=== PATIENT | male | born 1975 | race Caucasian/White ===

== ENCOUNTER 2017-06-08 13:06 | Inpatient (IN) | payer SELFPAY ==
[~2017-06-08] VITALS: Ht 175.3 cm; Wt 60.5 kg
[2017-06-08] VITALS (9 sets, daily range): BP systolic 121–160; BP diastolic 64–88; PULSE 81–111; RESP 16–22; TEMP 98.3–98.4; O2SAT 96–98
[2017-06-08] MEDS ORDERED: SODIUM CHLOR 0.9% 1000 ML INJ 1,000 ML IV ONE (13:20)
--- NOTE | 2017-06-08 13:25 | PD ---
HPI Chief Complaint: Seizure Time Seen by Provider: 13:22 Travel History International Travel<30 days: No Contact w/Intl Traveler<30days: No Traveled to known affect area: No History of Present Illness HPI 41-year-old male presents to the emergency department via EMS for evaluation after he had a seizure just prior to arrival. Patient arrived from [place] today. He is on vacation. Patient is Tunisian-speaking, but does understand significant amount Lithuanian. 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 The patient denies any history of seizures. Patient does state that he drinks approximately 12 pack of beer daily. He had 10 beers yesterday, but has not had any alcohol today. He denies any history of alcohol withdrawal seizures and states he does not feel like he is withdrawing. The patient denies any fevers or chills. No chest pain or shortness of breath. No abdominal pain. No nausea, vomiting, diarrhea. According to EMS, he did have incontinence of urine during seizure. He also has abrasions to his tongue from tongue biting. Patient also has abrasions to the nasal bridge and right forehead. He is unsure of his tetanus immunization is up-to-date, but does not believe it is. The patient denies any chronic medical problems and takes no prescribed medications. He denies any illicit drug use. Patient denies any complaints at this time and states he feels well. [facility] Social History Alcohol Use: Yes (12 pack daily) Tobacco Use: Yes Substance Use: No Allergies-Medications (Allergen,Severity, Reaction): Coded Allergies: No Known Allergies (Unverified , 06/08/17) Reported Meds & Prescriptions Reported Meds & Active Scripts Active No Active Prescriptions or Reported Medications Review of Systems Except as stated in HPI: all other systems reviewed are Neg Physical Exam Narrative GENERAL: Well-nourished, well-developed male patient, afebrile. SKIN: Focused skin assessment warm/dry. Patient abrasion to the nose and right forehead. He also has abrasions the tongue from tongue biting. HEAD: Normocephalic. EYES: No scleral icterus. No injection or drainage. PERRLA. ENT: Mucosa pink and moist. No erythema or exudates. No uvular edema. No uvular , palatal, or tonsillar deviation. Airway patent. Nasal turbinates appear normal without nasal blood, purulent drainage or septal hematoma. Bilateral tympanic membranes are clear without erythema or perforation. NECK: Supple, trachea midline. No JVD or lymphadenopathy. CARDIOVASCULAR: Regular rate and rhythm without murmurs, gallops, or rubs. Bilateral radial and pedal pulses are 2+. RESPIRATORY: Breath sounds equal bilaterally. No accessory muscle use. Lungs sounds are clear to auscultation. GASTROINTESTINAL: Abdomen soft, non-tender, nondistended. MUSCULOSKELETAL: No cyanosis, or edema. BACK: Nontender without obvious deformity. No CVA tenderness. Data Data Last Documented VS Vital Signs Date Time Temp Pulse Resp B/P Pulse Ox O2 Delivery O2 Flow Rate FiO2 06/08/17 13:23 98.4 104 18 155/88 96 Room Air Orders Complete Blood Count With Diff (06/08/17 13:20) Alcohol (Ethanol) (06/08/17 13:20) Drug Screen, Random Urine (06/08/17 13:20) Electrocardiogram (06/08/17 ) Ct Brain W/O Iv Contrast(Rout) (06/08/17 ) Blood Glucose (06/08/17 13:20) Ecg Monitoring (06/08/17 13:20) Iv Access Insert/Monitor (06/08/17 13:20) Oximetry (06/08/17 13:20) Comprehensive Metabolic Panel (06/08/17 13:20) Sodium Chlor 0.9% 1000 Ml Inj (Ns 1000 M (06/08/17 13:20) Sodium Chloride 0.9% Flush (Ns Flush) (06/08/17 13:30) Urinalysis - C+S If Indicated (06/08/17 13:20) Tetanus/Diphtheria Tox Adult (Tetanus/Di (06/08/17 13:30) Magnesium (Mg) (06/08/17 13:30) Chlordiazepoxide (Librium) (06/08/17 14:00) Urine Culture (06/08/17 13:30) Ketorolac Inj (Toradol Inj) (06/08/17 15:00) Labs Laboratory Tests Test 06/08/17 13:30 White Blood Count 7.4 TH/MM3 Red Blood Count 3.81 MIL/MM3 Hemoglobin 12.8 GM/DL Hematocrit 38.5 % Mean Corpuscular Volume 101.3 FL Mean Corpuscular Hemoglobin 33.5 PG Mean Corpuscular Hemoglobin 33.1 % Concent Red Cell Distribution Width 12.2 % Platelet Count 137 TH/MM3 Mean Platelet Volume 8.6 FL Neutrophils (%) (Auto) 73.7 % Lymphocytes (%) (Auto) 13.6 % Monocytes (%) (Auto) 11.4 % Eosinophils (%) (Auto) 0.3 % Basophils (%) (Auto) 1.0 % Neutrophils # (Auto) 5.5 TH/MM3 Lymphocytes # (Auto) 1.0 TH/MM3 Monocytes # (Auto) 0.8 TH/MM3 Eosinophils # (Auto) 0.0 TH/MM3 Basophils # (Auto) 0.1 TH/MM3 CBC Comment DIFF FINAL Differential Comment Urine Color YELLOW Urine Turbidity CLEAR Urine pH 6.5 Urine Specific [place] 1.018 Urine Protein 300 mg/dL Urine Glucose (UA) NEG mg/dL Urine Ketones 10 mg/dL Urine Occult Blood TRACE Urine Nitrite NEG Urine Bilirubin NEG Urine Urobilinogen LESS THAN 2.0 MG/DL Urine Leukocyte Esterase SMALL Urine RBC 2 /hpf Urine WBC 45 /hpf Urine Squamous Epithelial <1 /hpf Cells Urine Transitional Epithelial <1 /hpf Cells Urine Bacteria RARE /hpf Urine Hyaline Casts 5 /lpf Urine Granular Casts 1 /lpf Urine Mucus FEW /lpf Microscopic Urinalysis Comment CULTURE INDICATED Sodium Level 135 MEQ/L Potassium Level 3.5 MEQ/L Chloride Level 99 MEQ/L Carbon Dioxide Level 19.6 MEQ/L Anion Gap 16 MEQ/L Blood Urea Nitrogen 3 MG/DL Creatinine 0.60 MG/DL Estimat Glomerular Filtration 150 ML/MIN Rate Random Glucose 126 MG/DL Calcium Level 8.9 MG/DL Magnesium Level 2.0 MG/DL Total Bilirubin 1.0 MG/DL Aspartate Amino Transf 245 U/L (AST/SGOT) Alanine Aminotransferase 98 U/L (ALT/SGPT) Alkaline Phosphatase 99 U/L Total Protein 7.9 GM/DL Albumin 3.9 GM/DL Urine Opiates Screen NEG Urine Barbiturates Screen NEG Urine Amphetamines Screen NEG Urine Benzodiazepines Screen NEG Urine Cocaine Screen NEG Urine Cannabinoids Screen NEG Ethyl Alcohol Level 18 MG/DL MDM Medical Decision Making Medical Screen Exam Complete: Yes Emergency Medical Condition: Yes Medical Record Reviewed: Yes Interpretation(s) Last Impressions Head CT 06/08/17 0000 Signed Impressions: Service Date/Time: Thursday, June 08, 2017 13:31 - CONCLUSION: Unremarkable study. Gordon Arias MD Differential Diagnosis New-onset seizures versus alcohol withdrawal seizure versus electrolyte abnormality versus dehydration versus cardiac arrhythmia Narrative Course 41-year-old male presents to the emergency department via EMS for evaluation after a seizure that occurred just prior to arrival. He denies any history of seizures. Patient does drink 12 pack of beer daily and has not had any alcohol today. Patient denies any complaints at this time. Tetanus immunization is updated. EKG, CBC, CMP, alcohol level, urine drug screen, magnesium, UA are ordered and pending. CT of the brain is ordered and pending. Patient is given normal saline 1 L IV bolus. Patient is given Librium 50 mg by mouth. EKG shows sinus rhythm, heart rate 99, no acute ST changes. CBC shows hemoglobin 12.8, hematocrit 38.5. CMP shows carbon dioxide 19.6, anion gap is 16, glucose 126, AST 245, ALT 98. Magnesium is 2.0. UA shows small leukocyte esterase, 45 WBC. UDS is negative. Alcohol is 18. CT of the brain is unremarkable. Patient's at bedside states that while in the drive from [place], the patient became very shaky and she did become concerned. Once arriving the hotel he had a seizure. She believes that he is having alcohol withdrawal seizure as well. His daughter at bedside apparently witnessed a seizure and is very upset. The patient is still very shaky at this time. [facility] is paged for admission for alcohol withdrawal seizure. Dr. Christensen accepted the admission. Per her request, the patient will be slotted for ICU. Diagnosis Primary Impression: Alcohol withdrawal seizure Qualified Code: F10.230 - Alcohol withdrawal seizure, uncomplicated Admitting Information Admitting Physician Requests: Admit Scripts No Active Prescriptions or Reported Meds Gale Garcia Jun 08, 2017 13:25
[2017-06-08] MEDS ORDERED: TETANUS/DIPHTHERIA TOXOID ADULT 0.5 ML VIAL IM ONE (13:30)
[2017-06-08] MEDS ORDERED: SODIUM CHLORIDE 0.9% FLUSH 10 ML FLUSH IVF PRN (13:30)
--- NOTE | 2017-06-08 13:52 | RADRPT ---
EXAM DATE/TIME: 06/08/2017 13:31 [place] COMPARISON: No previous studies available for comparison. INDICATIONS : Possible seizure today. RADIATION DOSE: 56.35 CTDIvol (mGy) MEDICAL HISTORY : None SURGICAL HISTORY : None. ENCOUNTER: Initial ACUITY: 1 day PAIN SCALE: 0/10 LOCATION: Bilateral head TECHNIQUE: Multiple contiguous axial images were obtained of the head. Using automated exposure control and adj ustment of the mA and/or kV according to patient size, radiation dose was kept as low as reasonably a chievable to obtain optimal diagnostic quality images. DICOM format image data is available electro nically for review and comparison. FINDINGS: There is no evidence for intracranial hemorrhage, mass effect, mass lesions, edema, or extra-axial fl uid collections. The visualized bony structures appear intact. The ventricles are normal size for t he patient's age. There are no signs of acute infarction for technique. CONCLUSION: Unremarkable study. Gordon Arias MD on June 08, 2017 at 13:47 Board Certified Radiologist. This report was verified electronically.
[2017-06-08 13:53] LABS: AUTOMATED NEUTROPHIL # 5.5 TH/MM3 (1.8-7.7); BASOPHIL # 0.1 TH/MM3 (0-0.2); EOSINOPHIL % 0.3 % (0.0-4.0); HEMATOCRIT 38.5 % (39.0-51.0); HEMO FLAGS DIFF FINAL; LYMPH % 13.6 % (9.0-44.0); MEAN CELL VOLUME 101.3 FL (80.0-100.0); MEAN CORPUSCULAR HEMOGLOBIN 33.5 PG (27.0-34.0); MEAN CORPUSCULAR HGB CONC 33.1 % (32.0-36.0); MONO % 11.4 % (0.0-8.0); NEUT % 73.7 % (16.0-70.0); PLATELET COUNT 137 TH/MM3 (150-450); RED BLOOD COUNT 3.81 MIL/MM3 (4.50-5.90); RED CELL DISTRIBUTION WIDTH 12.2 % (11.6-17.2); WHITE BLOOD COUNT 7.4 TH/MM3 (4.0-11.0)
[2017-06-08] MEDS ORDERED: chlordiazePOXIDE 25 MG CAP PO ONE (14:00)
[2017-06-08 14:05] LABS: AMPHETAMINE, URINE NEG (NEG); BACTERIA, URINE RARE /hpf; BARBITURATES, URINE NEG (NEG); BLOOD, URINE TRACE (NEG); COCAINE, URINE NEG (NEG); COMMENT (UR) CULTURE INDICATED; CULTURE IF INDICATED CULTURE INDICATED; GLUCOSE,URINE NEG (NEG); GRANULAR CAST, URINE 1 /lpf; HYALINE CAST, URINE 5 /lpf (RARE); KETONE, URINE 10 mg/dL (NEG); MUCUS URINE FEW /lpf (OCC); NITRITE,URINE NEG (NEG); PH, URINE 6.5 (5.0-8.5); SQUAMOUS EPITHELIAL CELL URINE <1 /hpf (0-5); TRANSITIONAL EPI CELLS, URINE <1 /hpf; URINE COLOR YELLOW (YELLW/STRAW)
[2017-06-08 14:06] LABS: ALT (GPT) 98 U/L (12-78); ANION GAP 16 MEQ/L (5-15); AST (GOT) 245 U/L (15-37); BICARBONATE 19.6 MEQ/L (21.0-32.0); BLOOD UREA NITROGEN 3 MG/DL (7-18); CHLORIDE 99 MEQ/L (98-107); GLOMERULAR FILTRATION RATE 150 ML/MIN (>89); POTASSIUM 3.5 MEQ/L (3.5-5.1); SODIUM (NA) 135 MEQ/L (136-145)
[2017-06-08 14:08] LABS: ALKALINE PHOSPHATASE 99 U/L (45-117)
[2017-06-08] MEDS ORDERED: KETOROLAC TROMETHAMINE 30 MG/ML (IVP) VIAL IV PUSH ONE (15:00)
[2017-06-08] MEDS ORDERED: LORazepam 1 MG TAB PO PRN (15:45)
[2017-06-08] MEDS ORDERED: LORazepam 2 MG/ML VIAL IV PUSH PRN ×4 (15:45)
[2017-06-08] MEDS ORDERED: LORazepam 2 MG TAB PO PRN (15:45)
[2017-06-08] MEDS ORDERED: SODIUM CHLORIDE 0.9% FLUSH 10 ML FLUSH IV FLUSH PRN (15:45)
[2017-06-08] MEDS ORDERED: FLUMAZENIL 0.5 MG/5 ML VIAL IV PUSH PRN (15:45)
--- NOTE | 2017-06-08 16:12 | HHI.HP ---
HPI Service [facility] Hospitalists Primary Care Physician Non-Staff Admission Diagnosis alcohol withdrawal seizure Diagnoses: Chief Complaint: Witnessed seizure Travel History International Travel<30 Days: No Contact w/Intl Traveler <30 Da: No Traveled to Known Affected Are: No History of Present Illness Written by Tracy Garcia PA-C acting as scribe for Dr. Mackay on 06/08/17 at 15:53. This is a 41 yo Malaysian speaking male with no significant PMHX who presented to [facility] ED via EMS for evaluation of seizure. Patient was driving to [place] for vacation from [place] with his . He became very shaky while driving. Upon his arrival to the hotel, he had a witnessed seizure. Per EMS, patient was incontinent of urine during his seizure and bite his tongue. The patient has no recollection of any of the events until he woke up on the ED. He endorses drinking 12 beers daily. He had 10 beers yesterday but none today. He denies any history of EtOH withdrawal and/or seizure in the past. He denies any recent illness. He denies any fever or chills. He denies any N/V or abdominal pain. He denies any chest pain or SOB. He denies any illicit drug use. In the ED, patient is awake and alert. Head CT was unremarkable. His white count is normal. UA is suggestive of UTI. Review of Systems Except as stated in HPI: all other systems reviewed are Neg Past Family Social History Past Medical History Patient denies any previous PMHX. Past Surgical History Reviewed with patient, no major surgeries Reported Medications Patient denies any home medications Allergies: Coded Allergies: No Known Allergies (Unverified , 06/08/17) Active Ordered Medications Current Medications Medications (Trade) Dose Ordered Sig/Myles Route Start Time Stop Time Status Last Admin (NS Flush) 2 ml UNSCH PRN IV FLUSH 06/08/17 15:45 (Romazicon Inj) 0.2 mg Q1M PRN IV PUSH 06/08/17 15:45 (Ativan) 1 mg Q4H PRN PO 06/08/17 15:45 (Ativan Inj) 1 mg Q4H PRN IV PUSH 06/08/17 15:45 (Ativan) 2 mg Q2H PRN PO 06/08/17 15:45 (Ativan Inj) 2 mg Q2H PRN IV PUSH 06/08/17 15:45 (Ativan Inj) 2 mg Q1H PRN IV PUSH 06/08/17 15:45 (Ativan Inj) 2 mg Q15M PRN IV PUSH 06/08/17 15:45 Family History Reviewed with patient who denies any significant FMHX Social History Patient denies any tobacco use. Patient admits to drinking 12 pack a beer daily. He occasionally drinks hard liquor as well. Patient denies any illicit drug use. Patient is and lives with his . They are in [place] on vacation and live in [place]. Physical Exam Vital Signs Vital Signs Date Time Temp Pulse Resp B/P Pulse Ox O2 Delivery O2 Flow Rate FiO2 06/08/17 13:23 98.4 104 18 155/88 96 Room Air 06/08/17 13:19 98.4 104 18 155/88 96 Room Air 06/08/17 13:19 104 18 96 Room Air 06/08/17 13:09 98.4 111 19 155/88 96 Physical Exam GENERAL: This is a well-nourished, well-developed patient, in no apparent distress. Awake and alert. Mild tremors noted., slightly confused SKIN: Abrasions noted on right forehead and nose. HEAD: Normocephalic. EYES: Pupils equal round and reactive. Extraocular motions intact. No scleral icterus. No injection or drainage. ENT: Nose without bleeding or purulent drainage. Throat without erythema, Uvula midline. Airway patent. multiple bite wright sides of the tongue NECK: Trachea midline. No lymphadenopathy. Supple, nontender, no meningeal signs. CARDIOVASCULAR: Regular rate and rhythm without murmurs, gallops, or rubs. RESPIRATORY: Clear to auscultation. Breath sounds equal bilaterally. No wheezes , rales, or rhonchi. GASTROINTESTINAL: Abdomen soft, non-tender, nondistended. No hepato-splenomegaly , or palpable masses. No guarding. MUSCULOSKELETAL: Extremities without clubbing, cyanosis, or edema. No joint tenderness, effusion, or edema noted. No calf tenderness. NEUROLOGICAL: Awake and alert. Able to move all extremities. speech slow but clear Laboratory Laboratory Tests Test 06/08/17 13:30 White Blood Count 7.4 Red Blood Count 3.81 Hemoglobin 12.8 Hematocrit 38.5 Mean Corpuscular Volume 101.3 Mean Corpuscular Hemoglobin 33.5 Mean Corpuscular Hemoglobin 33.1 Concent Red Cell Distribution Width 12.2 Platelet Count 137 Mean Platelet Volume 8.6 Neutrophils (%) (Auto) 73.7 Lymphocytes (%) (Auto) 13.6 Monocytes (%) (Auto) 11.4 Eosinophils (%) (Auto) 0.3 Basophils (%) (Auto) 1.0 Neutrophils # (Auto) 5.5 Lymphocytes # (Auto) 1.0 Monocytes # (Auto) 0.8 Eosinophils # (Auto) 0.0 Basophils # (Auto) 0.1 CBC Comment DIFF FINAL Differential Comment Urine Color YELLOW Urine Turbidity CLEAR Urine pH 6.5 Urine Specific [place] 1.018 Urine Protein 300 Urine Glucose (UA) NEG Urine Ketones 10 Urine Occult Blood TRACE Urine Nitrite NEG Urine Bilirubin NEG Urine Urobilinogen LESS THAN 2.0 Urine Leukocyte Esterase SMALL Urine RBC 2 Urine WBC 45 Urine Squamous Epithelial <1 Cells Urine Transitional Epithelial <1 Cells Urine Bacteria RARE Urine Hyaline Casts 5 Urine Granular Casts 1 Urine Mucus FEW Microscopic Urinalysis Comment CULTURE INDICATED Sodium Level 135 Potassium Level 3.5 Chloride Level 99 Carbon Dioxide Level 19.6 Anion Gap 16 Blood Urea Nitrogen 3 Creatinine 0.60 Estimat Glomerular Filtration 150 Rate Random Glucose 126 Calcium Level 8.9 Magnesium Level 2.0 Total Bilirubin 1.0 Aspartate Amino Transf 245 (AST/SGOT) Alanine Aminotransferase 98 (ALT/SGPT) Alkaline Phosphatase 99 Total Protein 7.9 Albumin 3.9 Urine Opiates Screen NEG Urine Barbiturates Screen NEG Urine Amphetamines Screen NEG Urine Benzodiazepines Screen NEG Urine Cocaine Screen NEG Urine Cannabinoids Screen NEG Ethyl Alcohol Level 18 Date/Time Procedure Status Source Growth 06/08/17 13:30 Urine Culture Received Urine Clean Catch Pending Result Diagram: 06/08/17 1330 06/08/17 1330 Imaging Last Impressions Head CT 06/08/17 0000 Signed Impressions: Service Date/Time: Saturday, June 08, 2017 13:31 - CONCLUSION: Unremarkable study. KGeorgina Arias MD Assessment and Plan Assessment and Plan 41 yo Malaysian speaking male with no significant PMHX who presented to [facility] ED via EMS for evaluation of seizure. New onset seizure- Grand mal- alcohol withdrawal - possibly alcohol related. BS 126, Na 135, Mag 2.0. Obtain TSH level. - Head CT personally reviewed and unremarkable. - Consult Neurology - Neuro checks q 4 - continuous cardiac monitoring - seizure precautions - nursing bedside swallow evaluation - get an EEG. EtOH abuse- - Monitor for signs/symptoms of withdrawal - CIWA protocol. Start Librium standing dose 25 mg po q 6 - Thiamine, MVI and folic acid daily Alcoholic liver disease - suspect from alcohol use/abuse - monitor - repeat labs in am Anemia, mild Macrocytosis, mild Mild thrombocytopenia - likely from EtOH use - stable - monitor UTI - IV Rocephin - follow up on urine culture results Oral pain from seziure tongue bites - magic mouthwash for symptomatic relief DVT prophylaxis - SCD/DILCIA hose. Hold chemical prophylaxis in the event of need for LP, mild thrombocytopenia 6:50 pm Follow up visit patient awake and alert, clear and coherent more history from family- niece - patient apparently drinks all day every day but functional- painter drum- wall/buildings. his also drinks stress out because his Mom is sick and dying - diagnosed with cancer here traveling from [place] and had no drink for 15 hours state he was warned about abnormal liver tests- in the past d/w patient and and family and niece they want to drive back to [place] - d/w them to get him into a alcohol treatment program -no driving, needs adequate sleep Discussed Condition With ED physician and patient This note was transcribed by melissa Garcia PA-C. I, Dr. Raven Christensen personally performed the history, physical exam, and medical decision making; and confirmed the accuracy of the information in the transcribed note. Authenticated by Dr. Raven Christensen on 06/08/17 at 15:58 Physician Certification 2 Midnight Certification Type: Admission for Inpatient Services Order for Inpatient Services The services are ordered in accordance with Medicare regulations or non- Medicare payer requirements, as applicable. In the case of services not specified as inpatient-only, they are appropriately provided as inpatient services in accordance with the 2-midnight benchmark. Estimated LOS (days): 2 days is the estimated time the patient will need to remain in the hospital, assuming treatment plan goals are met and no additional complications. Post-Hospital Plan: Not yet determined Tracy Garcia Jun 08, 2017 16:12 Raven Christensen MD Jun 08, 2017 17:58
[2017-06-08] MEDS ORDERED: MULTIVITAMIN TAB PO ONE (16:30)
[2017-06-08] MEDS ORDERED: FOLIC ACID 1 MG TAB PO ONE (16:30)
[2017-06-08] MEDS ORDERED: THIAMINE HCL 100 MG TAB PO ONE (16:30)
[2017-06-08] MEDS: chlordiazePOXIDE 25 MG CAP PO SCH (18:21)
[2017-06-08] MEDS: D5-NS + KCL 20 MEQ INJ 1,000 ML IV SCH (18:21)
--- NOTE | 2017-06-08 18:56 | MB ---
cc: CHELO COLLINS MD DATE OF CONSULTATION: 06/08/2017. REASON FOR CONSULTATION: New onset seizure. HISTORY OF PRESENT ILLNESS: Mr. Magdaleno is a 41-year-old Burkinan-speaking male with no significant past medical history. He is accompanied by his and three children. They were driving to [place] from [place] and the was driving all the way as she states she thought that he was shaking during the whole trip because he drinks daily "all the time beer" and during the commute he did not drink for almost 20 hours so upon arrival to the hotel, he had a witnessed seizure where he bit his tongue, the sides of the tongue and he lost control of his bladder with tonic clonic contractures of the body. The patient does not have any recall of any of the events. The states that he has had withdrawal symptoms before with shivering, shaking, sweating, irritability but this is the first time has gone into a full seizure. He follows with his primary and the tells me that they know that he has liver cirrhosis. REVIEW OF SYSTEMS: A twelve-point review of systems was negative except as stated in the history of present illness. PAST MEDICAL HISTORY: Alcoholism. Denies smoking or illicit drugs. PAST SURGICAL HISTORY: Not contributory. MEDICATIONS: None. ALLERGIES: No known allergies. FAMILY HISTORY: Brother with seizure disorder. SOCIAL HISTORY: Denies tobacco. Drinking daily beer and hard liquor. Denies illicit drug abuse. PHYSICAL EXAMINATION: GENERAL: Awake, alert, oriented Burkinan-speaking not in acute distress. HEAD, EYES, EARS, NOSE, THROAT: Multiple traumas to the head with laceration of the right side of the forehead and left side of the nostril along with wright of tongue biting on the left side of the tongue. Intact hearing. Intact vision. NECK: The neck is supple. No signs of meningeal irritation. CARDIOVASCULAR: Regular rate and rhythm. RESPIRATORY: Clear to auscultation. No wheezes. GASTROINTESTINAL: The abdomen is soft, nontender. MUSCULOSKELETAL: No cyanosis. No clubbing. NEUROLOGICAL EXAMINATION: Awake, alert, oriented to time, person and place with the help of the in translation. Moves all extremities equally bilateral fine action tremor in both hands. Sluggish [id number] with mild past pointing. Intact sensation throughout. Reflexes 2+ bilateral symmetrical. Plantars bilaterally downgoing. LABORATORY DATA: WBC 10.4, hemoglobin 12.8, MCV 101.3, platelet count 137,000. Sodium 135, potassium 3.5, anion gap 16, BUN 3, creatinine 0.6, calcium 8.9, total bilirubin 1, AST 245, ALT 98, alkaline phosphatase 99, total protein 7.9. Toxicology - ethyl alcohol elevated at 18. DIAGNOSTIC IMAGING: - Head CT scan without contrast is unremarkable. DIAGNOSTIC IMPRESSION: 1. Alcohol withdrawal seizures. 2. Alcohol abuse. 3. Liver cirrhosis. PLAN: 1. Neuro checks q. 4 hourly. 2. EEG. 3. No need for AED, at this time given alcohol withdrawal seizure. Will reevaluate after and EEG study is done. 4. CIWA protocol. 5. Seizure precautions. 6. Fall precautions. 7. DVT prophylaxis. 8. I emphasized to the the importance of no driving as she specifically asked about driving and I made her aware of the [place] rule that he is not allowed to drive for one year until cleared by a physician. She understands well. 9. I advised them to follow up with PCP for resources and assistance to attain alcohol abstinence,they understand Thank you for the opportunity to participate in the care of your patient. MD CATHERINE Varela/JULIA /6:21 PM /6:42 PM YOLANDA
[2017-06-08] MEDS ORDERED: NYSTAT/DIPHENHY/LIDO MOUTHWASH (Adult) 120ML SWISH-SWAL SCH (19:00)
[2017-06-08] MEDS ORDERED: PANTOPRAZOLE SODIUM 40 MG VIAL IV PUSH SCH (20:00)
[2017-06-09] VITALS (10 sets, daily range): BP systolic 113–137; BP diastolic 63–86; PULSE 64–90; RESP 18–29; TEMP 98.4; O2SAT 96–97
[2017-06-09] MEDS: chlordiazePOXIDE 25 MG CAP PO SCH ×3 (00:38→11:09)
[2017-06-09] MEDS: D5-NS + KCL 20 MEQ INJ 1,000 ML IV SCH (03:09)
[2017-06-09 04:43] LABS: AUTOMATED NEUTROPHIL # 4.5 TH/MM3 (1.8-7.7); BASOPHIL # 0.1 TH/MM3 (0-0.2); EOSINOPHIL # 0.1 TH/MM3 (0-0.4); EOSINOPHIL % 0.9 % (0.0-4.0); HEMATOCRIT 35.9 % (39.0-51.0); HEMO FLAGS DIFF FINAL; LYMPH % 14.5 % (9.0-44.0); LYMPHOCYTE # 0.9 TH/MM3 (1.0-4.8); MEAN CELL VOLUME 98.6 FL (80.0-100.0); MEAN CORPUSCULAR HEMOGLOBIN 33.4 PG (27.0-34.0); MEAN CORPUSCULAR HGB CONC 33.9 % (32.0-36.0); MONO % 11.4 % (0.0-8.0); NEUT % 72.2 % (16.0-70.0); PLATELET COUNT 107 TH/MM3 (150-450); RED BLOOD COUNT 3.64 MIL/MM3 (4.50-5.90); RED CELL DISTRIBUTION WIDTH 12.3 % (11.6-17.2); WHITE BLOOD COUNT 6.3 TH/MM3 (4.0-11.0)
[2017-06-09 04:59] LABS: ANION GAP 9 MEQ/L (5-15); AST (GOT) 222 U/L (15-37); BICARBONATE 24.9 MEQ/L (21.0-32.0); BLOOD UREA NITROGEN 2 MG/DL (7-18); CHLORIDE 104 MEQ/L (98-107); GLOMERULAR FILTRATION RATE 199 ML/MIN (>89); POTASSIUM 3.7 MEQ/L (3.5-5.1); SODIUM (NA) 138 MEQ/L (136-145)
[2017-06-09 05:00] LABS: ALT (GPT) 87 U/L (12-78)
[2017-06-09 05:03] LABS: ALKALINE PHOSPHATASE 93 U/L (45-117); CREATINE KINASE 385 U/L (39-308); TOTAL BILIRUBIN ADULT 1.5 MG/DL (0.2-1.0)
[2017-06-09 05:18] LABS: CKMB 4.6 NG/ML (0.5-3.6)
--- NOTE | 2017-06-09 07:46 | HHI.PR ---
Subjective Remarks overnight, no seizure episodes, no headaches complains of tongue pain afebrile did well on standing Librium- did not require any prn Ativan Objective Vitals Vital Signs Date Time Temp Pulse Resp B/P Pulse Ox O2 Delivery O2 Flow Rate FiO2 06/09/17 06:00 64 06/09/17 04:00 68 06/09/17 03:00 74 18 137/86 97 06/09/17 02:00 67 06/09/17 00:00 90 06/08/17 23:00 81 06/08/17 23:00 98.3 81 22 160/86 97 06/08/17 22:00 81 06/08/17 20:02 98.4 109 16 160/86 98 06/08/17 20:00 92 06/08/17 18:26 83 19 140/70 97 Room Air 06/08/17 16:06 87 18 121/64 97 Room Air 06/08/17 13:23 98.4 104 18 155/88 96 Room Air 06/08/17 13:19 98.4 104 18 155/88 96 Room Air 06/08/17 13:19 104 18 96 Room Air 06/08/17 13:09 98.4 111 19 155/88 96 I/O 06/08/17 06/08/17 06/08/17 06/09/17 06/09/17 06/09/17 06:59 14:59 22:59 06:59 14:59 22:59 Intake Total 1915 ml 570 ml Output Total 2100 ml 700 ml Balance -185 ml -130 ml Intake Oral 530 ml 0 ml IV Total 1385 ml 570 ml Output Urine Total 2100 ml 700 ml # Bowel Movements 0 0 Result Diagram: 06/09/17 0349 06/09/17 0349 Imaging Last Impressions Head CT 06/08/17 0000 Signed Impressions: Service Date/Time: Thursday, June 08, 2017 13:31 - CONCLUSION: Unremarkable study. Gordon Arias MD Objective Remarks awake and alert, patient more alert and interactive, oriented x 3 anicteric tongue with bite wright and tongue mucosal smalll hematoma lungs clear regular rhythm abdomen soft, nontender extremities neuro exam - unremarkable gait steady A/P Assessment and Plan 41 yo [place] speaking male with no significant PMHX who presented to [facility] ED via EMS for evaluation of seizure. New onset seizure- Grand mal- alcohol withdrawal - no further episodes overnight -appreciate neurology input -EEG pending - Neuro vital - stable - tolerating regular diet- ate 2x for lunch EtOH abuse- - Monitor for signs/symptoms of withdrawal - CIWA protocol. continue Librium standing dose 25 mg po q 6 - Thiamine, MVI and folic acid daily -counselled extensively on Alcohol related diseases- CMP, cirrhosis Rhabdomyelysis- from Seizure encourage po fluids Alcoholic liver disease - abstain- and instructed - monitor - counselled extensively Anemia, mild Macrocytosis, mild Mild thrombocytopenia - likely from EtOH use - stable - monitor UTI - IV Rocephin- change to po levaquin - follow up on urine culture results- change to po as sensitiby comes back Oral pain from seziure tongue bites/mucosal hematomas - magic mouthwash for symptomatic relief DVT prophylaxis - SCD/DILCIA hose. UP and ambulating- steady gait DC today and will take him home to [place] and get into an AA program Eat regularly. No alcohol advise on SZ precautions No driving for 6 months till clear by a physician adequate sleep 06/08 d/w patient and and family and niece they want to drive back to [place] - d/w them to get him into a alcohol treatment program -no driving, needs adequate sleep Transfer to medical floor will d/w with family when they- arrive - plan was to go back home/drive back to [place] today advise to get him into a treatment program Raven Christensen MD Jun 09, 2017 07:46
[2017-06-09] MEDS ORDERED: cefTRIAXone INJ 1,000 MG in SODIUM CHLORIDE 0.9% INJ 100 ML IV SCH (08:00)
[2017-06-09] MEDS ORDERED: THIAMINE HCL 100 MG TAB PO SCH (09:00)
[2017-06-09] MEDS ORDERED: FOLIC ACID 1 MG TAB PO SCH (09:00)
[2017-06-09] MEDS ORDERED: MULTIVITAMIN TAB PO SCH (09:00)
[2017-06-09] MEDS ORDERED: GNP100TA3 PO (14:10)
[2017-06-09] MEDS ORDERED: FOLI1TAB6 PO (14:10)
[2017-06-09] MEDS ORDERED: CHLO25CA9 PO (14:10)
[2017-06-09] MEDS ORDERED: LEVA500T20 PO (14:10)
--- NOTE | 2017-06-09 18:14 | EKG ---
Date Performed: 06/08/2017 Time Performed: 13:24:35 PTAGE: 41 years EKG: Sinus rhythm MODERATE T-WAVE ABNORMALITY, CONSIDER ANTERIOR ISCHEMIA ABNORMAL ECG NO PREVIOUS TRACING DOCTOR: Andrew Sanchez Interpretating Date/Time 06/09/2017 18:11:36
[2017-06-10] MEDS ORDERED: LEVOFLOXACIN 500 MG TAB PO SCH (09:00)
--- NOTE | 2017-06-11 07:49 | MG ---
cc: CHELO COLLINS Lab No: Date: 06/10/2017 Age: 41 Sex: M Race: DATE OF [address] Christensen MEDICAL HISTORY Alcohol withdrawal seizures, incontinence. Tobacco and caffeine use. MEDICATIONS 1. Folate. 2. Ceftriaxone. 3. Protonix. 4. Potassium chloride. 5. Librium. DESCRIPTION The background activity is 9 to 10 Hz, alpha, located posteriorly, superimposed by excess beta activity. The EEG recording is contaminated by excessive movement artifact. Hyperventilation did not make a change in the EEG. Photic stimulation did not elicit driving response. There were no electrographic seizures or epileptiform discharges noted. EEG INTERPRETATION This is a normal awake EEG. Excess beta activity may be related to medication adverse effects like benzos and barbiturate. The absence of electrographic seizures or epileptiform discharges does not rule out the diagnosis of epilepsy. MD CATHERINE Varela/ROGERIO /8:50 PM /7:48 AM
--- NOTE | 2017-06-11 07:53 | MG ---
cc: CRUZ MOLINA MD Lab No: [id number] Date: 06/09/2017 Age: 41 Sex: M Race: ___ DATE OF 1975 INDICATIONS This is a 41-year-old with a history of seizure and ethanol use. DESCRIPTION Increased fast frequencies noted throughout the recording in addition to myogenic artifact and blink artifact. Good driving with photic stimulation. Chewing artifact around epoch 60, good EEG variability reactivity. Single lead EKG showing sinus rhythm. Sweat-sway artifact noted as well. INTERPRETATION The constructs of artifact as noted above, excessive beta frequencies were appreciated which may be related to psychotropic medication, benzodiazepine effect, otherwise benign EEG. Clinical correlation. Cruz Molina MD MG/DJL /8:51 PM /7:52 AM
== END 2017-06-09 14:38 | disposition home or self-care (01) | DRG 101 ==
LOC: NEPC 13:06 → NEDA 15:05 → HIMN 19:50
PROVIDERS: ADMIT Internal Medicine; ATTEND Internal Medicine
DX: G40.89 Other seizures (principal); M62.82 Rhabdomyolysis; D69.59 Other secondary thrombocytopenia; F10.230 Alcohol dependence with withdrawal, uncomplicated; N39.0 Urinary tract infection, site not specified; K70.30 Alcoholic cirrhosis of liver without ascites; F17.210 Nicotine dependence, cigarettes, uncomplicated; D64.9 Anemia, unspecified; D75.89 Other specified diseases of blood and blood-forming organs; K14.6 Glossodynia
CPT/HCPCS: 70450; 80053; 80307; 81001; 82550; 82552; 83735; 84443; 85025; 87086; 87641; 90471; 90714; 93005; 95819; 96360; C9113; J0696; J1885; J3480; J7030